=== PATIENT | male | born 1950 | race Caucasian/White ===

== ENCOUNTER 2021-10-12 19:25 | Outpatient (CLI) | payer MEDICARE, SELFPAY ==
--- NOTE | 2021-10-19 11:07 | W.PM.SLEEP ---
Sleep Study Details Details Interpreting Provider: Pepito Ramon MD Date of Sleep Study: 10/12/21 Sleep Study Details: STUDY TYPE:? Home ? BMI:? 29.7 ORDERING PROVIDER:? Tomi INDICATION:? Concerns about sleep apnea ? SLEEP SUMMARY:? Monitor time 478.8 minutes RESPIRATORY SUMMARY:? AHI 25.2, supine AHI 41.6 Low oxygen 69%, 20.4% of the study oxygen less than 90%, 1.7% of study less than 85%, 0.5% of study oxygen less than 80%. Snoring 7.3 PERIODIC LIMB MOVEMENTS OF SLEEP:? Not reported CARDIAC:? Range 64 to 96, mean 75.7 beats per minute IMPRESSION:? Severe obstructive sleep apnea with significant hypo oxygenation. Apnea was worse in the supine position RECOMMENDATION: In-lab titration study
== END 2021-10-12 19:26 | disposition home or self-care (01) ==
LOC: SLEEP 19:26
PROVIDERS: PCP Family Medicine; Visit Provider Otolaryngology
DX: G47.33 Obstructive sleep apnea (adult) (pediatric) (principal)
CPT/HCPCS: 95806

== ENCOUNTER 2022-09-12 08:04 | Outpatient (CLI) | payer MEDICARE, SELFPAY | END 2022-09-12 08:05 | disposition home or self-care (01) | PROVIDERS: PCP Family Medicine; Visit Provider Family Medicine | DX: E78.5 Hyperlipidemia, unspecified (principal); Z13.1 Encounter for screening for diabetes mellitus; Z12.5 Encounter for screening for malignant neoplasm of prostate; Z13.89 Encounter for screening for other disorder | CPT/HCPCS: 80048; 80061; 84153 ==

== ENCOUNTER 2023-09-15 11:03 | Outpatient (CLI) | payer MEDICARE, SELFPAY | END 2023-09-15 11:04 | disposition home or self-care (01) | PROVIDERS: PCP Family Medicine; Visit Provider Family Medicine | DX: E78.00 Pure hypercholesterolemia, unspecified (principal); Z13.228 Encounter for screening for other metabolic disorders | CPT/HCPCS: 80048; 80061 ==

== ENCOUNTER 2024-10-01 11:20 | Outpatient (CLI) | payer MEDICARE, SELFPAY | END 2024-10-01 11:21 | disposition home or self-care (01) | PROVIDERS: PCP Family Medicine; Visit Provider Family Medicine | DX: E78.00 Pure hypercholesterolemia, unspecified (principal); N40.1 Benign prostatic hyperplasia with lower urinary tract symptoms; R35.1 Nocturia; Z12.5 Encounter for screening for malignant neoplasm of prostate | CPT/HCPCS: 80048; 80061; G0103 ==